=== PATIENT | male | born 1940 | race Two or more races ===

== ENCOUNTER 2022-11-13 14:55 | Emergency (ER) | payer OTHER ==
[~2022-11-13] VITALS: Ht 177.8 cm; Wt 69.0 kg
[2022-11-13 14:58] VITALS: O2SAT 100
[2022-11-13] MEDS ORDERED: VANCOMYCIN 1G PREMIX 200 ML IV SCH (16:00)
[2022-11-13] MEDS ORDERED: PIPERACILLIN/TAZ 3.375G PREMIX 50 ML IV ONE (16:00)
[2022-11-13] MEDS ORDERED: SODIUM CHLORIDE 0.9% 1000ML BAG (SEPSIS BOLUS) IV ONE (16:00)
[2022-11-13 16:23] LABS: INR 1.5; PROTHROMBIN TIME 15.5 sec (9.6-11.0)
[2022-11-13 16:26] LABS: BASOPHILS % 0.1 % (0.0-2.0); HEMATOCRIT. 27.2 % (42.0-52.0); HEMOGLOBIN. 8.9 g/dL (14.0-18.0); LYMPHOCYTES % 9.8 % (20.0-50.0); MEAN CORPUSCULAR HEMOGLOBIN 29.1 pg (28.0-32.0); MEAN CORPUSCULAR HGB CONC 32.6 g/dL (31.0-37.0); MEAN CORPUSCULAR VOLUME 89.4 fL (80.0-94.0); MEAN PLATELET VOLUME 8.2 fl (7.4-10.4); MONOCYTES % 4.2 % (2.0-8.0); NEUTROPHILS % 85.9 % (40.0-76.0); PLATELET 275 x1000/uL (130-400); RED BLOOD CELL COUNT 3.04 mill/uL (4.7-6.1); RED CELL DISTRIBUTION WIDTH 21.5 % (11.6-14.6); WHITE BLOOD COUNT 9.3 x1000/uL (4.5-11.0)
[2022-11-13 16:27] LABS: DIFFERENTIAL COMMENT 1
[2022-11-13 18:05] LABS: SODIUM 155 mEq/L (136-145)
[2022-11-13 18:06] LABS: ALANINE AMINOTRANSFERASE 10 IU/L (13-61); ALBUMIN 2.1 g/dL (3.4-5.0); ASPARTATE AMINOTRANSFERASE 15 IU/L (15-37); BILIRUBIN TOTAL 0.4 mg/dL (0.1-1.0); CALCIUM 8.2 mg/dL (8.5-10.1); CARBON DIOXIDE 21 mEq/L (21-32); CHLORIDE 124 mEq/L (98-107); CREATININE 2.7 mg/dL (0.6-1.3); GLUCOSE 188 mg/dL (70-105); POTASSIUM 2.9 mEq/L (3.5-5.1); PROTEIN TOTAL 6.2 g/dL (6.0-8.3); UREA NITROGEN BLOOD 74 mg/dL (7-21)
[2022-11-13 18:08] LABS: TROPONIN I HIGH SENSITIVITY 94 ng/L (<78)
[2022-11-13 18:09] LABS: LACTIC ACID 3.4 mmol/L (0.4-2.0)
[2022-11-13 22:12] LABS: TROPONIN I HIGH SENSITIVITY 111 ng/L (<78)
[2022-11-13 23:17] VITALS: BP 99/62; PULSE 95; RESP 20; TEMP 98.6
== END 2022-11-13 23:30 | disposition short-term general hospital (02) ==
LOC: ER 15:03 → EDBD 15:03 → ER 23:30
DX: E86.0 Dehydration (principal); E87.6 Hypokalemia; E87.0 Hyperosmolality and hypernatremia; E87.20 Acidosis, unspecified; R77.8 Other specified abnormalities of plasma proteins; N17.9 Acute kidney failure, unspecified; I10 Essential (primary) hypertension
CPT/HCPCS: 99291; 96360; 96361; 80053; 83605; 85025; 85610; 87040; 84484; 36415; 84145; 71045; 93005; J7030